=== PATIENT | female | born 1985 | race Caucasian/White ===

== ENCOUNTER 2019-06-23 07:19 | Emergency (ER) | payer MEDICAID ==
[~2019-06-23] VITALS: Ht 152.4 cm; Wt 73.0 kg
[2019-06-23 07:25] VITALS: BP 124/86
--- NOTE | 2019-06-23 07:31 | NUR ---
Patient ambulated to bed 7. RN evaluating patient at bedside.
--- NOTE | 2019-06-23 07:36 | NUR ---
Dr. Georges evaluating patient at bedside.
--- NOTE | 2019-06-23 07:56 | NUR ---
PT WAS EXAMINED BY DR. LAUGHLIN THEN DC'D HOME. Patient discharged with v/s stable. Written and verbal after care instructions given and explained. Patient verbalized understanding. Ambulatory with steady gait. All questions addressed prior to discharge. Advised to follow up with PMD.
[2019-06-23 07:57] VITALS: BP 121/70
== END 2019-06-23 07:56 | disposition home or self-care (01) ==
LOC: MED 07:19
DX: R07.9 Chest pain, unspecified (principal); F43.9 Reaction to severe stress, unspecified; Z98.890 Other specified postprocedural states
CPT/HCPCS: 93005; 99283